=== PATIENT | male | born 1970 | race Caucasian/White ===

== ENCOUNTER 2016-08-27 13:40 | Emergency (ER) | payer BC ==
--- NOTE | ~2016-08-27 | ER ---
PATIENT'S NAME: DAVY TEJADA [facility] AGE: 45 Y [address] ROOM: [place] [address] LOCATION: [facility] ADMIT DATE: 08/27/2016 ER/Outpatient Report DISCHARGE DATE: 08/27/2016 FAMILY PHYSICIAN: PHYSICIAN, NO ATTENDING PHYSICIAN: Fermin Torres CHIEF COMPLAINT: Elbow injury. 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 He caught his arms on the opening that he fell through and sustained a laceration to the left proximal forearm. He has kept some pressure on the wound and came in. He knows his last tetanus booster was within the last 10 years, but thinks it is probably likely longer than five years. No allergies. No other pertinent medical history. PAST MEDICAL HISTORY: Documented on the record and reviewed by me. SOCIAL HISTORY: Documented on the record and reviewed by me. MEDICATIONS: Documented on the record and reviewed by me. ALLERGIES: DOCUMENTED ON THE RECORD AND REVIEWED BY ME. REVIEW OF SYSTEMS: All systems reviewed and negative except as noted in the HPI. PHYSICAL EXAMINATION: VITAL SIGNS: Blood pressure 125/73, pulse is 84, respiratory rate 16, temperature 97.4, SpO2 is 94% on room air. Pain is rated at 5/10. GENERAL: Age-appropriate male. No obvious pain or distress, sitting in a semi-recumbent position. NEUROLOGIC: Awake and alert. GCS 15. No focal deficits. No asymmetry. HEENT: Normocephalic and atraumatic. Eyes are PERRL. Oropharynx is clear. NECK: Supple. Trachea is midline. CHEST/HEART: Regular rate and rhythm. LUNGS: With even unlabored respirations. ABDOMEN: Soft and benign. BACK: Normal to inspection and palpation. SKIN: Dirty as are clothes, consistent with working condition at that time. PATIENT'S NAME: DAVY TEJADA [facility] AGE: 45 Y [address] ROOM: [place] [address] LOCATION: [facility] ADMIT DATE: 08/27/2016 ER/Outpatient Report DISCHARGE DATE: 08/27/2016 FAMILY PHYSICIAN: PHYSICIAN, NO ATTENDING PHYSICIAN: Fermin Torres No other abnormalities. EXTREMITIES: The left elbow was notable for a 2.9 cm transverse laceration approximately 8 cm distal to the olecranon process on the volar aspect of the forearm. The hand is otherwise neurovascularly intact with no abnormalities. LABORATORY DATA AND X-RAYS: Plain films do not reveal any foreign bodies. IMPRESSION: Complex forearm laceration with muscle compartment involvement. EMERGENCY DEPARTMENT COURSE: The patient was seen and evaluated as above. His tetanus was updated. The wound did track distally and ulnar slightly. The wound did have to be extended slightly by 1 cm to ensure adequate visualization of the wound base. It was copiously irrigated under syringe irrigation with normal saline. All foreign matter was debrided. Electrocautery was used to secure a bloodless field on three punctate bleeding vessels to ensure adequate evaluation. The patient tolerated the procedure well. Anesthesia was done with lidocaine with epinephrine, a total of 6 mL infiltrated. The wound was closed with one 5-0 chromic gut through the muscle fascia to close that. The skin was closed with seven 3-0 Prolene sutures. Good skin approximation was ensured. The patient was given Keflex and recommended to use Tylenol, ibuprofen, and ice as needed. Wound care was discussed. Sutures out in 7 days. MD SCOTT MARR/yohana /[id number] d: 08/27/16 2244 t: 09/10/16 0658, OUTPATIENT REPORT
== END 2016-08-27 15:16 | disposition disaster alternative care site (69) ==
LOC: GACC 13:40
PROC: 0JQH0ZZ Repair Left Lower Arm Subcutaneous Tissue and Fascia, Open Approach (ICD-10-PCS; principal; 2016-08-27)
DX: S51.812A Laceration without foreign body of left forearm, initial encounter (principal); W17.89XA Other fall from one level to another, initial encounter